=== PATIENT | female | born 2000 | race Caucasian/White ===

== ENCOUNTER 2018-12-01 14:03 | Inpatient (IN) ==
[2018-12-01] MEDS ORDERED: fentaNYL citrate 100 MCG/2 ML VIAL IV STA ×2 (14:49→15:41)
[2018-12-01 15:34] LABS: Basophils # (auto) 0.06 K/uL (0-0.2); Basophils % (auto) 0.5 %; Eosinophils % (auto) 3.4 %; Hematocrit (blood only) 37.3 % (37-47); Hemoglobin 12.3 g/dL (12.0-16.0); Immature Granulocytes # (auto) 0.04 K/uL (0.00-0.02); Immature Granulocytes % (auto) 0.3 %; Lymphocytes # (auto) 2.29 K/uL (1.2-3.4); Lymphocytes % (auto) 19.5 %; Mean Corpuscular Volume 89.2 fL (80-100); Mean Platelet Volume 10.1 fL (7.4-10.4); Monocytes # (auto) 0.71 K/uL (0.11-0.59); Monocytes % (auto) 6.1 %; Neutrophils # (auto) 8.22 K/uL (1.4-6.5); Neutrophils % (auto) 70.2 %; Platelet Count 247 K/uL (130-400); RDW Coefficient of Variation 13.2 % (11.5-14.5); Red Blood Count 4.18 M/uL (4.2-5.4); White Blood Count 11.72 K/uL (4.8-10.8)
[2018-12-01 15:51] LABS: Albumin Level 3.4 gm/dl (3.4-5.0); BUN Creatinine Ratio 11.3 (10-20); Calcium 8.4 mg/dl (8.5-10.1); Creatinine Clr Calc Pharmacy 112.7 ml/min; Est GFR (African American) 117.7; Est GFR (Non-African American) 101.5; Potassium 3.7 mmol/L (3.5-5.1)
[2018-12-01 15:53] LABS: Albumin Globulin Ratio 0.9 (0.9-2); Bilirubin,Total 0.8 mg/dl (0.2-1); C Reactive Protein 3.29 mg/dl (0-0.29); Globulin 3.7 gm/dl (2.5-4.0); Total Protein 7.1 gm/dl (6.4-8.2)
[2018-12-01] MEDS ORDERED: GADOBUTROL 65ML VIAL IV PRN (16:13)
--- NOTE | 2018-12-01 16:57 | Magnetic Resonance Report ---
MRI OF THE LUMBAR SPINE WITH AND WITHOUT CONTRAST CLINICAL HISTORY: Low back pain, fever COMPARISON STUDY: Lumbar spine CT December 01, 2018. TECHNIQUE: Utilizing a 1.5 Kalli magnet and dedicated coil, multiplanar, multiecho imaging of the [facility] spine was performed before and after uneventful IV administration of 7 mL of Gadavist. FINDINGS: For purposes of numbering on this exam, the L5-S1 disc space is assigned to axial image 23 of 25. Exa m is compromised by motion artifact. Vertebral body heights are maintained. The conus terminates at t he T12-L1 level. There is no evidence for discitis. No epidural fluid collection is identified. The c entral canal and neural foramen are patent. There are few minimal disc bulges at the L4-L5 and L5-S1 levels. Markedly abnormal appearance of the paraspinal muscles of the lumbar spine are noted. Increas ed T2 signal is noted within multiple paraspinal muscles as well as slight increased T1 signal within left paraspinal musculature. Postcontrast images demonstrate hypoenhancing foci within the left para spinal musculature. There is no rim-enhancing fluid collection. However, these findings raise the pos sibility of myonecrosis. Prevertebral soft tissues are normal. IMPRESSION: 1. Markedly abnormal appearance of the bilateral paraspinal muscles of the lumbar spine with edema, s uspected minimal hemorrhage and foci of diminished enhancement within the left paraspinal musculature . The findings suggest myositis with possible myonecrosis/rhabdomyolysis. Findings could be correlate d with creatine kinase levels. An infectious myositis could appear similar and could be correlated wi th clinical evidence for an infectious process. No drainable fluid collection at this time. If persis tent symptoms, short-term follow-up MRI is recommended. Findings discussed with Jerry Larios at time o f dictation. 2. No evidence for discitis. No epidural abnormality. Patent central canal and neural foramen. 3. Study mildly compromised by motion artifact. Electronically signed by: Bartolo Gamino M.D. 12/01/2018 4:56 PM
--- NOTE | 2018-12-01 17:13 | Emergency Department Note ---
History of Present Illness General Chief complaint: Back Injury/Pain Stated complaint: HERNIATED DISC Time Seen by Provider: 12/01/18 14:15 History of Present Illness Maximum Pain Intensity: 10 This is a 18-year-old female that presents to the emergency department via private vehicle with complaints of "herniated disc". The patient states that Wednesday she did some heavy lifting in the gym which included squats and lifts. She then notes that there was really no pain she just felt soreness in the back. She then notes that back pain developed and she was seen at the hospital in [place] on Wednesday and then again today. She was told it was a pulled muscle initially and then a CT scan was done today which revealed herniated disks. She states that she was given initially Toradol, Flexeril and Percocet and none of those have been controlling her pain. She does note that she is concerned and believe she would benefit from an MRI. Home Medications Home Medications Medication Instructions Recorded Confirmed Type norethindrone ac-eth estradiol 1 tab PO DAILY 12/01/18 12/01/18 History [ ()] Allergies Allergy/AdvReac Type Severity Reaction Status Date / Time doxycycline Allergy Vomiting Unverified 12/01/18 16:36 amoxicillin AdvReac Hives Unverified 12/01/18 16:36 Past Med/Surg History Medical History No pertinent past medical history Surgical History No pertinent past surgical history Social History Current Living Situation Comment: Roomates Other Information That Helps Us Care for You: No Feels Safe at Home: Yes Safety Concerns: Feels Safe At This Time Smoking Status: Never smoker Hx Alcohol Use: Yes Alcohol Intake Frequency: holidays/special occasions only Hx Substance Use: No Beliefs That Will Affect Care: None Preferred Language: Albanian Communication Ability: Effective Head Banquet Waitress Required: Yes Review of Systems A total of 10 systems reviewed and were otherwise negative Physical Exam Vital Signs Vital Signs - 24 hr 12/01/18 14:10 12/01/18 16:39 12/01/18 17:35 Temperature 36.7 C 37.4 C Temperature Source Oral Oral Sepsis Recent Fever Within 48 Hours No Sepsis New/Unexplained Change in Mental Status No Sepsis Action Taken by Nursing No Action Required Pulse Rate 77 Pulse Rate [Right Finger] 61 68 Pulse Rhythm [Right Finger] Pulse Strength [Right Finger] Respiratory Rate 16 16 28 H Respiratory Effort / Characteristics Non-Labored Respiratory Depth Normal Shallow Respiratory Pattern Tachypnea Blood Pressure 121/71 Blood Pressure [Right Arm] 111/56 L 115/64 Blood Pressure Mean 87 Blood Pressure Mean [Right Arm] 74 81 Blood Pressure Position [Right Arm] Pulse Oximetry 96 98 98 Oxygen Delivery Method Room Air Room Air Room Air Oxygen Flow Rate 12/01/18 18:51 12/01/18 20:18 12/01/18 21:14 Temperature 37.7 C H 37.1 C Temperature Source Oral Oral Sepsis Recent Fever Within 48 Hours Sepsis New/Unexplained Change in Mental Status Sepsis Action Taken by Nursing Pulse Rate 84 Pulse Rate [Right Finger] 78 77 Pulse Rhythm [Right Finger] Regular Pulse Strength [Right Finger] Normal Respiratory Rate 22 20 19 Respiratory Effort / Characteristics Non-Labored Non-Labored Respiratory Depth Normal Normal Respiratory Pattern Regular Blood Pressure 123/69 Blood Pressure [Right Arm] 123/69 139/82 Blood Pressure Mean Blood Pressure Mean [Right Arm] 87 101 Blood Pressure Position [Right Arm] Sitting Pulse Oximetry 100 100 100 Oxygen Delivery Method Room Air Room Air Oxygen Flow Rate 12/01/18 23:25 12/02/18 07:45 Temperature 36.8 C 36.9 C Temperature Source Oral Oral Sepsis Recent Fever Within 48 Hours Sepsis New/Unexplained Change in Mental Status Sepsis Action Taken by Nursing Pulse Rate Pulse Rate [Right Finger] 72 72 Pulse Rhythm [Right Finger] Regular Pulse Strength [Right Finger] Normal Respiratory Rate 21 20 Respiratory Effort / Characteristics Non-Labored Respiratory Depth Normal Respiratory Pattern Regular Blood Pressure Blood Pressure [Right Arm] 138/68 118/75 Blood Pressure Mean Blood Pressure Mean [Right Arm] 91 89 Blood Pressure Position [Right Arm] Pulse Oximetry 99 97 Oxygen Delivery Method Nasal Cannula Room Air Oxygen Flow Rate 3 VITAL SIGNS - Vital signs and nursing notes were reviewed. Stable. Afebrile. GENERAL -18-year-old female appearing her stated age who is in no acute distress but appears in pain. Communicates well with provider and answers questions appropriately. SKIN - Without rashes. No meningeal or petechial rash. HEAD - NC/AT. EYES - PERRL with EOMI bilaterally. Sclera anicteric. EARS - No deformities of external structures noted on gross examination bilaterally. NOSE - Midline and without cyanosis. No epistaxis or purulent drainage noted. MOUTH/OROPHARYNX - Without perioral cyanosis. Buccal mucosa pink and moist and without leukoplakia. Tongue midline with equal elevation of palate bilaterally. No tonsillar hypertrophy, erythema, or exudates noted. Good dentition noted. NECK - Neck with FROM. Supple to palpation. No lymphadenopathy noted. No nuchal rigidity. LUNGS - Chest wall symmetric without accessory muscle use, intercostals retractions, or central cyanosis. Normal vesicular breath sounds CTA B/L. No wheezes, rales, or rhonchi appreciated. CARDIAC - RRR with S1/S2. No murmur, rubs, or gallops appreciated. ABDOMEN - Abdominal contour normal without pulsations or visible masses. BS normoactive all four quadrants. No tenderness, palpable masses, hepatosplenomegaly, or ascites noted. EXTREMITIES - No clubbing or peripheral cyanosis. No pretibial edema present. + 5/5 strength noted in UE/LE bilaterally. MUSCULOSKELETAL: There is diffuse tenderness to palpation overlying the paraspinous musculature of the lumbar spine left greater than right. With extension and flexion at the patient's left hip there is reproducible pain in the lumbar spine. There is no direct tenderness to palpation overlying spinous processes.Pt. is NV intact in the lower extremities without any appreciable deficit. She is able to ambulate. NEUROLOGIC - Cranial nerves II through XII grossly intact. Sensory intact to light touch throughout. Patellar reflexes +2/4. PSYCH - A&Ox3 and cooperates fully with examiner. Pt is very pleasant and interacts well with examiner. Course Administered Medications Diclofenac Sodium (Voltaren 1% Top) 1 appln EXT QID RICARDO Stop: 01/01/19 08:59 Last Admin: 12/02/18 12:50 Dose: 1 appln Admin: 12/02/18 07:57 Dose: 1 appln Hydromorphone HCl (Dilaudid) 0.5 mg IV Q2H PRN PRN Reason: Severe Pain Stop: 12/16/18 11:22 Last Admin: 12/02/18 11:56 Dose: 0.5 mg Sodium Chloride (Nss 1000ml) 1,000 mls @ 175 mls/hr IV .Q5H43M RICARDO Stop: 12/02/18 17:10 Last Infusion: 12/02/18 11:56 Dose: 175 mls/hr Infusion: 12/02/18 11:22 Dose: 0 mls/hr Admin: 12/02/18 11:21 Dose: 175 mls/hr Infusion: 12/02/18 11:21 Dose: 0 mls/hr Admin: 12/02/18 05:44 Dose: 175 mls/hr Clindamycin Phosphate 600 mg/ (Dextrose) 54 mls @ 100 mls/hr IV Q8H RICARDO Stop: 12/12/18 03:59 Last Infusion: 12/02/18 11:55 Dose: 0 mls/hr Admin: 12/02/18 11:22 Dose: 100 mls/hr Infusion: 12/02/18 05:08 Dose: 0 mls/hr Admin: 12/02/18 04:35 Dose: 100 mls/hr Ketorolac Tromethamine (Toradol) 30 mg IV Q6H RICARDO Stop: 12/07/18 09:59 Last Admin: 12/02/18 10:06 Dose: 30 mg Lidocaine (Lidoderm 5%) 1 patch TD HS RICARDO Stop: 12/31/18 23:09 Last Admin: 12/01/18 23:34 Dose: 1 patch Miscellaneous (Remove Lidoderm Patch) 1 ea N/A QAM RICARDO Stop: 01/01/19 08:59 Last Admin: 12/02/18 07:57 Dose: 1 ea Morphine Sulfate (Morphine Sulfate) 4 mg IV Q3H PRN PRN Reason: Pain Stop: 12/15/18 20:43 Last Admin: 12/02/18 08:31 Dose: 4 mg Admin: 12/02/18 04:32 Dose: 4 mg Admin: 12/02/18 01:11 Dose: 4 mg Admin: 12/01/18 22:02 Dose: 4 mg Tramadol HCl (Ultram) 50 mg PO Q4H PRN PRN Reason: Pain Stop: 12/31/18 20:43 Last Admin: 12/02/18 04:44 Dose: 50 mg Admin: 12/02/18 00:32 Dose: 50 mg Discontinued Medications Fentanyl Citrate (Fentanyl Citrate) 25 mcg IV NOW STA Stop: 12/01/18 14:50 Last Admin: 12/01/18 14:54 Dose: 25 mcg Fentanyl Citrate (Fentanyl Citrate) 25 mcg IV NOW STA Stop: 12/01/18 15:42 Last Admin: 12/01/18 15:55 Dose: 25 mcg Gadobutrol (Gadavist 65ml) 7 ml IV ONCE PRN PRN Reason: Interaction Checking Stop: 12/05/18 16:12 Last Admin: 12/01/18 16:14 Dose: 7 ml Hydromorphone HCl (Dilaudid) 0.5 mg IV NOW STA Stop: 12/01/18 17:48 Last Admin: 12/01/18 17:58 Dose: 0.5 mg Sodium Chloride (Nss 1000ml) 1,000 mls @ 999 mls/hr IV .Q1H1M RICARDO Stop: 12/01/18 18:15 Last Infusion: 12/01/18 21:11 Dose: Admin: 12/01/18 18:09 Dose: 999 mls/hr Aztreonam 2,000 mg/ Dextrose 110 mls @ 100 mls/hr IV NOW STA Stop: 12/01/18 18:23 Last Admin: 12/01/18 18:48 Dose: Not Given Sodium Chloride (Nss 1000ml) 1,000 mls @ 999 mls/hr IV .Q1H1M RICARDO Stop: 12/01/18 18:30 Last Infusion: 12/01/18 21:11 Dose: Admin: 12/01/18 18:09 Dose: 999 mls/hr Vancomycin HCl 1,250 mg/ (Sodium Chloride) 525 mls @ 200 mls/hr IV NOW ONE Stop: 12/01/18 19:55 Last Infusion: 12/01/18 22:35 Dose: 0 mls/hr Admin: 12/01/18 19:40 Dose: 200 mls/hr Clindamycin Phosphate (Cleocin) 600 mg in 54 mls @ 100 mls/hr IV ONE ONE Stop: 12/01/18 19:22 Last Infusion: 12/01/18 20:50 Dose: 0 mls/hr Admin: 12/01/18 20:17 Dose: 100 mls/hr Potassium Chloride/Dextrose/Sod Cl (D5nss + 20meq Kcl) 20 meq in 1,000 mls @ 250 mls/hr IV .Q4H RICARDO Stop: 12/02/18 05:44 Last Infusion: 12/02/18 05:12 Dose: 0 mls/hr Admin: 12/02/18 01:12 Dose: 250 mls/hr Infusion: 12/02/18 01:12 Dose: 250 mls/hr Admin: 12/01/18 21:31 Dose: 250 mls/hr Vancomycin HCl 1,000 mg/ (Sodium Chloride) 270 mls @ 125 mls/hr IV Q8H RICARDO Stop: 12/12/18 03:59 Last Infusion: 12/02/18 06:55 Dose: 0 mls/hr Admin: 12/02/18 04:35 Dose: 125 mls/hr Ketorolac Tromethamine (Toradol) 30 mg IV ONE ONE Stop: 12/01/18 21:31 Last Admin: 12/01/18 21:31 Dose: 30 mg Medical Decision Making Laboratory Data Result diagrams: 12/02/18 05:33 12/02/18 05:33 Lab Results 12/01/18 12/01/18 12/01/18 Range/Units 14:45 14:45 14:45 WBC 11.72 H (4.8-10.8) K/uL RBC 4.18 L (4.2-5.4) M/uL Hgb 12.3 (12.0-16.0) g/dL Hct 37.3 (37-47) % MCV 89.2 (80-100) fL MCH 29.4 (25-34) pg MCHC 33.0 (32-36) g/dL RDW Std Deviation 43.0 (36.4-46.3) fL RDW Coeff of Kirsten 13.2 (11.5-14.5) % Plt Count 247 (130-400) K/uL MPV 10.1 (7.4-10.4) fL Immature Gran % (Auto) 0.3 % Neut % (Auto) 70.2 % Lymph % (Auto) 19.5 % Weston % (Auto) 6.1 % Eos % (Auto) 3.4 % Baso % (Auto) 0.5 % Immature Gran # (Auto) 0.04 H (0.00-0.02) K/uL Neut # (Auto) 8.22 H (1.4-6.5) K/uL Lymph # (Auto) 2.29 (1.2-3.4) K/uL Weston # (Auto) 0.71 H (0.11-0.59) K/uL Eos # (Auto) 0.40 (0-0.5) K/uL Baso # (Auto) 0.06 (0-0.2) K/uL ESR 16 (0-21) mm/hr Sodium 136 (136-145) mmol/L Potassium 3.7 (3.5-5.1) mmol/L Chloride 108 H (98-107) mmol/L Carbon Dioxide 24 (21-32) mmol/L Anion Gap 4.0 (3-11) BUN 9 (7-18) mg/dl Creatinine 0.83 (0.6-1.2) mg/dl Est Cr Clr Drug Dosing 112.7 ml/min Est GFR ( Amer) 117.7 Est GFR (Non-Af Amer) 101.5 BUN/Creatinine Ratio 11.3 (10-20) Glucose 76 (70-99) mg/dl Lactate (0.4-2.0) mmol/L Calcium 8.4 L (8.5-10.1) mg/dl Phosphorus (2.5-4.9) mg/dl Magnesium (1.8-2.4) mg/dl Total Bilirubin 0.8 (0.2-1) mg/dl AST 308 H (15-37) U/L ALT 107 H (12-78) U/L Alkaline Phosphatase 46 (45-117) U/L Total Creatine Kinase 38877 H (26-192) U/L C-Reactive Protein 3.29 H (0-0.29) mg/dl Total Protein 7.1 (6.4-8.2) gm/dl Albumin 3.4 (3.4-5.0) gm/dl Globulin 3.7 (2.5-4.0) gm/dl Albumin/Globulin Ratio 0.9 (0.9-2) HCG, Quant mIU/ml 12/01/18 12/01/18 12/01/18 Range/Units 14:45 14:45 18:07 WBC (4.8-10.8) K/uL RBC (4.2-5.4) M/uL Hgb (12.0-16.0) g/dL Hct (37-47) % MCV (80-100) fL MCH (25-34) pg MCHC (32-36) g/dL RDW Std Deviation (36.4-46.3) fL RDW Coeff of Kirsten (11.5-14.5) % Plt Count (130-400) K/uL MPV (7.4-10.4) fL Immature Gran % (Auto) % Neut % (Auto) % Lymph % (Auto) % Weston % (Auto) % Eos % (Auto) % Baso % (Auto) % Immature Gran # (Auto) (0.00-0.02) K/uL Neut # (Auto) (1.4-6.5) K/uL Lymph # (Auto) (1.2-3.4) K/uL Weston # (Auto) (0.11-0.59) K/uL Eos # (Auto) (0-0.5) K/uL Baso # (Auto) (0-0.2) K/uL ESR (0-21) mm/hr Sodium (136-145) mmol/L Potassium (3.5-5.1) mmol/L Chloride (98-107) mmol/L Carbon Dioxide (21-32) mmol/L Anion Gap (3-11) BUN (7-18) mg/dl Creatinine (0.6-1.2) mg/dl Est Cr Clr Drug Dosing ml/min Est GFR ( Amer) Est GFR (Non-Af Amer) BUN/Creatinine Ratio (10-20) Glucose (70-99) mg/dl Lactate 1.5 (0.4-2.0) mmol/L Calcium (8.5-10.1) mg/dl Phosphorus (2.5-4.9) mg/dl Magnesium (1.8-2.4) mg/dl Total Bilirubin (0.2-1) mg/dl AST (15-37) U/L ALT (12-78) U/L Alkaline Phosphatase (45-117) U/L Total Creatine Kinase Cancelled (26-192) U/L C-Reactive Protein (0-0.29) mg/dl Total Protein (6.4-8.2) gm/dl Albumin (3.4-5.0) gm/dl Globulin (2.5-4.0) gm/dl Albumin/Globulin Ratio (0.9-2) HCG, Quant < 1 mIU/ml 12/01/18 12/02/18 12/02/18 Range/Units 23:04 05:33 05:33 WBC 8.30 (4.8-10.8) K/uL RBC 3.89 L (4.2-5.4) M/uL Hgb 11.5 L (12.0-16.0) g/dL Hct 34.9 L (37-47) % MCV 89.7 (80-100) fL MCH 29.6 (25-34) pg MCHC 33.0 (32-36) g/dL RDW Std Deviation 43.0 (36.4-46.3) fL RDW Coeff of Kirsten 13.1 (11.5-14.5) % Plt Count 245 (130-400) K/uL MPV 9.8 (7.4-10.4) fL Immature Gran % (Auto) 0.4 % Neut % (Auto) 57.7 % Lymph % (Auto) 28.3 % Weston % (Auto) 7.3 % Eos % (Auto) 5.7 % Baso % (Auto) 0.6 % Immature Gran # (Auto) 0.03 H (0.00-0.02) K/uL Neut # (Auto) 4.79 (1.4-6.5) K/uL Lymph # (Auto) 2.35 (1.2-3.4) K/uL Weston # (Auto) 0.61 H (0.11-0.59) K/uL Eos # (Auto) 0.47 (0-0.5) K/uL Baso # (Auto) 0.05 (0-0.2) K/uL ESR (0-21) mm/hr Sodium 138 (136-145) mmol/L Potassium 3.9 (3.5-5.1) mmol/L Chloride 108 H (98-107) mmol/L Carbon Dioxide 23 (21-32) mmol/L Anion Gap 7.0 (3-11) BUN 6 L (7-18) mg/dl Creatinine 0.58 L (0.6-1.2) mg/dl Est Cr Clr Drug Dosing 140.2 ml/min Est GFR ( Amer) > 150.0 Est GFR (Non-Af Amer) 132.7 BUN/Creatinine Ratio 10.6 (10-20) Glucose 89 (70-99) mg/dl Lactate (0.4-2.0) mmol/L Calcium 7.6 L (8.5-10.1) mg/dl Phosphorus 3.6 (2.5-4.9) mg/dl Magnesium 1.9 (1.8-2.4) mg/dl Total Bilirubin (0.2-1) mg/dl AST (15-37) U/L ALT (12-78) U/L Alkaline Phosphatase (45-117) U/L Total Creatine Kinase 37223 H 56307 H (26-192) U/L C-Reactive Protein (0-0.29) mg/dl Total Protein (6.4-8.2) gm/dl Albumin (3.4-5.0) gm/dl Globulin (2.5-4.0) gm/dl Albumin/Globulin Ratio (0.9-2) HCG, Quant mIU/ml 12/02/18 12/02/18 Range/Units 05:33 05:33 WBC (4.8-10.8) K/uL RBC (4.2-5.4) M/uL Hgb (12.0-16.0) g/dL Hct (37-47) % MCV (80-100) fL MCH (25-34) pg MCHC (32-36) g/dL RDW Std Deviation (36.4-46.3) fL RDW Coeff of Kirsten (11.5-14.5) % Plt Count (130-400) K/uL MPV (7.4-10.4) fL Immature Gran % (Auto) % Neut % (Auto) % Lymph % (Auto) % Weston % (Auto) % Eos % (Auto) % Baso % (Auto) % Immature Gran # (Auto) (0.00-0.02) K/uL Neut # (Auto) (1.4-6.5) K/uL Lymph # (Auto) (1.2-3.4) K/uL Weston # (Auto) (0.11-0.59) K/uL Eos # (Auto) (0-0.5) K/uL Baso # (Auto) (0-0.2) K/uL ESR 11 (0-21) mm/hr Sodium (136-145) mmol/L Potassium (3.5-5.1) mmol/L Chloride (98-107) mmol/L Carbon Dioxide (21-32) mmol/L Anion Gap (3-11) BUN (7-18) mg/dl Creatinine (0.6-1.2) mg/dl Est Cr Clr Drug Dosing ml/min Est GFR ( Amer) Est GFR (Non-Af Amer) BUN/Creatinine Ratio (10-20) Glucose (70-99) mg/dl Lactate (0.4-2.0) mmol/L Calcium (8.5-10.1) mg/dl Phosphorus (2.5-4.9) mg/dl Magnesium (1.8-2.4) mg/dl Total Bilirubin (0.2-1) mg/dl AST (15-37) U/L ALT (12-78) U/L Alkaline Phosphatase (45-117) U/L Total Creatine Kinase (26-192) U/L C-Reactive Protein 8.89 H (0-0.29) mg/dl Total Protein (6.4-8.2) gm/dl Albumin (3.4-5.0) gm/dl Globulin (2.5-4.0) gm/dl Albumin/Globulin Ratio (0.9-2) HCG, Quant mIU/ml Imaging Data Radiologist's Impression: MRI OF THE LUMBAR SPINE WITH AND WITHOUT CONTRAST CLINICAL HISTORY: Low back pain, fever COMPARISON STUDY: Lumbar spine CT December 01, 2018. TECHNIQUE: Utilizing a 1.5 Kalli magnet and dedicated coil, multiplanar, multiecho imaging of the lumbar spine was performed before and after uneventful IV administration of 7 mL of Gadavist. FINDINGS: For purposes of numbering on this exam, the L5-S1 disc space is assigned to axial image 23 of 25. Exam is compromised by motion artifact. Vertebral body heights are maintained. The conus terminates at the T12-L1 level. There is no evidence for discitis. No epidural fluid collection is identified. The central canal and neural foramen are patent. There are few minimal disc bulges at the L4 -L5 and L5-S1 levels. Markedly abnormal appearance of the paraspinal muscles of the lumbar spine are noted. Increased T2 signal is noted within multiple paraspinal muscles as well as slight increased T1 signal within left paraspinal musculature. Postcontrast images demonstrate hypoenhancing foci within the left paraspinal musculature. There is no rim-enhancing fluid collection. However, these findings raise the possibility of myonecrosis. Prevertebral soft tissues are normal. IMPRESSION: 1. Markedly abnormal appearance of the bilateral paraspinal muscles of the lumbar spine with edema, suspected minimal hemorrhage and foci of diminished enhancement within the left paraspinal musculature. The findings suggest myositis with possible myonecrosis/rhabdomyolysis. Findings could be correlated with creatine kinase levels. An infectious myositis could appear similar and could be correlated with clinical evidence for an infectious process. No drainable fluid collection at this time. If persistent symptoms, short-term follow-up MRI is recommended. Findings discussed with Jerry Larios at time of dictation. 2. No evidence for discitis. No epidural abnormality. Patent central canal and neural foramen. 3. Study mildly compromised by motion artifact. Electronically signed by: Bartolo Gamino M.D. 12/01/2018 4:56 PM [facility] Narrative Patient was seen and evaluated as above in room D6. Review was performed of nursing notes and vital signs. After obtaining a thorough history and physical examination the above work up was performed. She presents to us today with complaints of "herniated disc". The patient was seen at [place] emergency department x2 in the recent past. A CT scan was performed there. I reviewed this. There was documentation to support herniated disks. The patient stated that she would like an MRI. I discussed this with the patient and initially discussed indications for the MRI. It was then found subjectively that she noted she had a fever yesterday and I discussed how a an MRI should be performed with contrast. An IV was placed. She was given pain medication. She was given fentanyl noting that this is what she had in the emergency department earlier today and already had Toradol and had minimal relief. She already was using Percocet and Flexeril with minimal relief. I would argue that because of the patient's escalated level of pain on exam and minimal relief with the pain medication, subjective fevers that an MRI with contrast of the lumbar spine is warranted. This was obtained. Results as above. I was called emergently by the radiologist with the findings. I then immediately discussed these with the patient and the attending physician. In the event that this could be infectious she was ordered antibiotics immediately. There is also evidence of rhabdomyolysis which could be causing her symptoms however with the MRI finding ,fevers do believe that emperic abx for myositis are reasonable. Blood cultures are pending. I discussed these findings with the on -call specialist physicians, Dr. Whitehead. We discussed how at this time he does not appear to be a surgical spine issue. He recommended discussing this with medicine. I then discussed this with the medicine team. Specifically, I spoke to Dr. Harrison. Pt. will be admitted. She was ordered 2 L of fluid while in department. I also per pt request spoke to her mother regarding her findings throughout her stay. Case was discussed with the attending physician. In the evaluation and treatment of this patient the following differential diagnosis entertained: Fracture, dislocation, subluxation, cauda equina syndrome , rhabdomyolysis, AAA, diverticulitis, appendicitis, torsion, osteomyelitis, piriformis syndrome, strain, sprain, among others. Impression & Plan Myositis, Low back pain, Rhabdomyolysis Discharge Plan Visit Data *Final* Discharge Date/Time: 12/01/18 20:18 Chief Complaint: Back Injury/Pain Stated Complaint: HERNIATED DISC ED Provider: Malik Laboy ED Midlevel Provider: Jerry Larios Discharge Problem: Myositis, Low back pain, Rhabdomyolysis Patient Disposition: Admitted As Inpatient Condition: Good Discharge Instructions Interventions: ED Discharge Assessment Last Done: 12/01/18 20:18
[2018-12-01] MEDS ORDERED: SODIUM CHLORIDE 0.9% 1000ML 1,000 ML IV SCH ×2 (17:15→17:30)
[2018-12-01] MEDS ORDERED: VANCOMYCIN HCL 1,250 MG in SODIUM CHLORIDE 0.9% 500 ML IV ONE (17:18)
[2018-12-01] MEDS ORDERED: AZTREONAM 2,000 MG in DEXTROSE 5% 100 ML IV STA (17:18)
[2018-12-01] MEDS ORDERED: VANCOMYCIN CONSULT ACTIVE PRN ×2 (17:18→20:44)
[2018-12-01] MEDS ORDERED: HYDROmorphone INJ 0.5 MG/0.5 ML SYR IV STA (17:47)
[2018-12-01] MEDS ORDERED: CLINDAMYCIN 600 MG/54 ML BAG IV ONE (18:50)
--- NOTE | 2018-12-01 19:25 | History & Physical Report ---
Date of Service December 01, 2018 Assessment & Plan (1) Myositis: 18 y/o F without a significant medical history. The pt was weight lifting 3 days prior including squats an lifts. She initially had some soreness of her lower back which has progressed to severe pain in the lumbar area. She also reports a fever of 102. She denies SOB, CP, N/V or dysuria. She denies any lower extremity muscle weakness. She may have some positional numbness of her LLE which she states comes and goes. She was initially evaluated and discharged from the ER at [facility]. She returns today due to worsening pain and has a persistent fever. An MRI of the lumbar spine demonstrated an abnormal appearance of the bilateral paraspinal muscles with edema, suspected minimal hemorrhage and foci of diminished enhancement within the left paraspinal musculature. The findings suggest myositis with possible myonecrosis/rhabdomyolysis. Initial labs are consistent with rhabdomyolysis with a CK of 19,000. She had a low-grade fever on arrival to the ER. 1) Suspected myositis - this is unusual as she does not have any risk factors or a history of immune suppression and the findings follow what was likely inflammation due to weight lifting. She has a fever and minimal leukocytosis so that we will start antibiotics pending culture results. We will consult the ortho/spine service. Analgesics are provided. 2) Rhabdomyolysis - mild at present - Aggressive IVF, trend CK, electrolytes. Full code - SCDs due to small hemorrhagic focus on MRI Total time for this admit including review of labs, meds, imaging, records - discussion with pt and ER attending - 35 min Present on Admission?: Yes History of Present Illness Chief Complaint: Back pain Primary Care Provider: [facility] 18 y/o F without a significant medical history. The pt was weight lifting 3 days prior including squats an lifts. She initially had some soreness of her lower back which has progressed to severe pain in the lumbar area. She also reports a fever of 102. She denies SOB, CP, N/V or dysuria. She denies any lower extremity muscle weakness. She may have some positional numbness of her LLE which she states comes and goes. She was initially evaluated and discharged from the ER at [facility]. She returns today due to worsening pain and has a persistent fever. An MRI of the lumbar spine demonstrated an abnormal appearance of the bilateral paraspinal muscles with edema, suspected minimal hemorrhage and foci of diminished enhancement within the left paraspinal musculature. The findings suggest myositis with possible myonecrosis/ rhabdomyolysis. Initial labs are consistent with rhabdomyolysis with a CK of 19 ,000. She had a low-grade fever on arrival to the ER. PMH: Denies any medical or surgical history Social: Does not smoke, under aged social drinker, studying criminal justice at [employer] Family: Both parents alive and well Allergies Allergy/AdvReac Type Severity Reaction Status Date / Time doxycycline Allergy Vomiting Unverified 12/01/18 16:36 amoxicillin AdvReac Hives Unverified 12/01/18 16:36 Home Medications Home Medications Medication Instructions Recorded Confirmed Type norethindrone ac-eth estradiol 1 tab PO DAILY 12/01/18 12/01/18 History [ ()] Past Med/Surg History Medical History No pertinent past medical history Surgical History No pertinent past surgical history Social History Feels Safe at Home: Yes Smoking Status: Never smoker Review of Systems Gen: Reports fever of to 102 at home ENT: Denies congestion, throat pain, hearing loss Eyes: Denies acute visual changes CV: Denies CP, palpitations Pulmonary: Denies SOB, cough, wheezing GI: Denies N/V, diarrhea, constipation Neuro: Denies acute or unilateral weakness, acute gait impairment, headache or acute visual changes - has transient numbness in her LLE Musculoskeletal: Severe lower back pain Endocrine: Denies polydipsia, polyuria Skin: Denies acute rashes or ulcers Physical Exam 2 Vital Signs (Past 24 Hours): Last Vital Signs Temp 37.7 C H 12/01/18 18:51 Pulse 78 12/01/18 18:51 Resp 22 12/01/18 18:51 BP 123/69 12/01/18 18:51 Pulse Ox 100 12/01/18 18:51 Results & Data Diagnostic Findings Lumbar MRI: 1. Markedly abnormal appearance of the bilateral paraspinal muscles of the lumbar spine with edema, suspected minimal hemorrhage and foci of diminished enhancement within the left paraspinal musculature. The findings suggest myositis with possible myonecrosis/rhabdomyolysis. Findings could be correlated with creatine kinase levels. An infectious myositis could appear similar and could be correlated with clinical evidence for an infectious process. No drainable fluid collection at this time. If persistent symptoms, short-term follow-up MRI is recommended. Findings discussed with Jerry Larios at time of dictation. 2. No evidence for discitis. No epidural abnormality. Patent central canal and neural foramen. 3. Study mildly compromised by motion artifact.
--- NOTE | 2018-12-01 20:34 | Emergency Department Note ---
Entered by Erica Faulkner acting as a scribe for Malik Laboy MD ED Visit Note The patient was seen and examined by myself in conjunction with THELMA Schroeder. I agree with the history, physical and findings as documented. Please see the note for disposition and details. The scribe's documentation has been prepared under my direction and personally reviewed by me in its entirety. I confirm that the note above accurately reflects all work, treatment, procedures, and medical decision making performed by me.
[2018-12-01] MEDS ORDERED: ACETAMINOPHEN 325 MG TAB PO PRN (20:44)
[2018-12-01] MEDS ORDERED: ALUMINUM/MAGNESIUM SUSP 30 ML UDC PO PRN (20:44)
[2018-12-01] MEDS ORDERED: ONDANSETRON INJ 2 MG/ML 2 ML VIAL IV PRN (20:44)
[2018-12-01] MEDS ORDERED: KETOROLAC 30 MG/ML VIAL IV ONE (21:30)
[2018-12-01] MEDS: D5NSS + 20MEQ KCL 20 MEQ/1,000 ML BAG IV SCH (21:31)
[2018-12-01] MEDS: MoRPHine SULFATE 4 MG/ML 1 ML CARP\\VIAL IV PRN (22:02)
[2018-12-01] MEDS: LIDOCAINE 5% 1 PATCH TD SCH (23:34)
[2018-12-02] MEDS: TRAMADOL HCL 50 MG TABLET PO PRN ×2 (00:32→04:44)
[2018-12-02] MEDS: MoRPHine SULFATE 4 MG/ML 1 ML CARP\\VIAL IV PRN ×3 (01:11→08:31)
[2018-12-02] MEDS: D5NSS + 20MEQ KCL 20 MEQ/1,000 ML BAG IV SCH (01:12)
[2018-12-02] MEDS ORDERED: VANCOMYCIN HCL 1,000 MG in SODIUM CHLORIDE 0.9% 250 ML IV SCH (04:00)
[2018-12-02] MEDS: CLINDAMYCIN 600 MG in DEXTROSE 5% 50 ML IV SCH ×2 (04:35→11:22)
[2018-12-02] MEDS: SODIUM CHLORIDE 0.9% 1000ML 1,000 ML IV SCH ×3 (05:44→18:22)
[2018-12-02 06:08] LABS: Basophils # (auto) 0.05 K/uL (0-0.2); Basophils % (auto) 0.6 %; Eosinophils # (auto) 0.47 K/uL (0-0.5); Eosinophils % (auto) 5.7 %; Hematocrit (blood only) 34.9 % (37-47); Hemoglobin 11.5 g/dL (12.0-16.0); Immature Granulocytes # (auto) 0.03 K/uL (0.00-0.02); Immature Granulocytes % (auto) 0.4 %; Lymphocytes # (auto) 2.35 K/uL (1.2-3.4); Lymphocytes % (auto) 28.3 %; Mean Corpuscular Volume 89.7 fL (80-100); Mean Platelet Volume 9.8 fL (7.4-10.4); Monocytes # (auto) 0.61 K/uL (0.11-0.59); Monocytes % (auto) 7.3 %; Neutrophils # (auto) 4.79 K/uL (1.4-6.5); Neutrophils % (auto) 57.7 %; Platelet Count 245 K/uL (130-400); RDW Coefficient of Variation 13.1 % (11.5-14.5); Red Blood Count 3.89 M/uL (4.2-5.4)
--- NOTE | 2018-12-02 06:52 | Pharmacy Report ---
Pharmacy Abx Initial Consult - Date of Service December 02, 2018 - Pharmacy Dosing Scope Date of Consult: 12/02/18 Consultation requested by: Dr. Harrison Pharmacy is consulted to continue IV Vancomycin dosing therapy, order appropriate labs and adjust drug dose/frequency. - Subjective The patient is a 18 year old F admitted on 12/01/18 19:24. She presents after weight lifting incident where she began to feel pain in her back and hips. She was seen in [place] then presented to our ED this evening. MRI shows possible Myositis or possible Myonecrosis/Rhabdomyolis in her back area. Dr. Harrison admits her on Clindamycin and Vancomycin both continued from ED. - Objective Height: 5 ft 2 in Weight: 68.3 kg Vital Signs (Past 12hrs): Vital Signs Temp Pulse Pulse Resp BP BP Pulse Ox 12/01/18 23:25 36.8 C 72 21 138/68 99 12/01/18 21:14 37.1 C 77 19 139/82 100 12/01/18 20:18 84 20 123/69 100 12/01/18 18:51 37.7 C H 78 22 123/69 100 Lab Results (24hrs): Laboratory Tests (24 Hours) 12/02/18 12/01/18 12/01/18 05:33 23:04 14:45 WBC 8.30 Neut # (Auto) 4.79 ESR Creatinine Est Cr Clr Drug Dosing Total Creatine Kinase 91154 H Cancelled C-Reactive Protein 12/01/18 12/01/18 12/01/18 14:45 14:45 14:45 WBC 11.72 H Neut # (Auto) 8.22 H ESR 16 Creatinine 0.83 Est Cr Clr Drug Dosing 112.7 Total Creatine Kinase 80136 H C-Reactive Protein 3.29 H Micro Results: 12/01/18 18:07 Blood Culture - Pending Blood 12/01/18 18:12 Blood Culture - Pending Blood - Risk Factors for Resistance * - Assessment & Plan Assessment 18 year old F with back injury possible Myositis Plan Vancomycin IV * Estimated PK Parameters: Vd 0.7 L/kg, Alfredo 0.086 hr-1, t1/2 8 hr * Loading dose: 1250mg (~18mg/kg) * Maintenance dose: 1000mg IV (~15 mg/kg) every 8 hours * Goal trough level: 15 to 20 mcg/mL * Trough level ordered prior to 0400 dose on 12/03/18 Pharmacy will continue to follow and will adjust dose/frequency as necessary. Thank you.
[2018-12-02 06:54] LABS: BUN Creatinine Ratio 10.6 (10-20); Blood Urea Nitrogen 6 mg/dl (7-18); Calcium 7.6 mg/dl (8.5-10.1); Carbon Dioxide 23 mmol/L (21-32); Chloride 108 mmol/L (98-107); Creatinine Clr Calc Pharmacy 140.2 ml/min; Est GFR (African American) > 150.0; Est GFR (Non-African American) 132.7; Glucose 89 mg/dl (70-99); Magnesium 1.9 mg/dl (1.8-2.4); Potassium 3.9 mmol/L (3.5-5.1); Sodium 138 mmol/L (136-145)
[2018-12-02 07:39] LABS: Phosphorus 3.6 mg/dl (2.5-4.9)
[2018-12-02] MEDS: DICLOFENAC SOD 1% GEL 100 GM TUBE EXT SCH ×4 (07:57→21:10)
[2018-12-02 08:06] LABS: Creatine Kinase 16223 U/L (26-192)
--- NOTE | 2018-12-02 09:26 | Consultation Report ---
DATE OF ADMISSION: 12/01/2018 CHIEF COMPLAINT: Back, buttock and lower extremity difficulty. The pain really is in her left buttock region. It is not centrally located in the spine. It is off the midline on the left hand side in the buttock region. As she was lifting weights, the history is well documented, had some soreness of lower back, went to lumbar spine. Did have a temperature elevation. She had continued pain and was discharged from Emergency Room in [place] and returned to [facility] with persistent pain and fever, evaluation and treatment. Her suspected diagnosis is that of myositis, although it is somewhat unusual. I get the fact that she was lifting weights, squats and deadlifts, but still people do this all the time, they do not have these complications. She also has labs consistent with rhabdomyolysis with her CK of 19,000. PAST MEDICAL HISTORY: Negative. PAST SURGICAL HISTORY: Negative. SOCIAL HISTORY: Nonsmoker and nondrinker, studying Criminal Justice in [employer], both parents lived well, are from the [facility]. REVIEW OF SYSTEMS: Denies any current, when I am seeing her this morning, any fever, sweats, chills, any bowel or bladder concerns. Denies shortness of breath, coughing. Denies diarrhea, constipation. Denies any deficits to the extremities. OBJECTIVE: VITAL SIGNS: 37.7 temperature, pulse regular at 80 beats per minute. Blood pressure is normal. LUNGS: Clear. EXTREMITIES: Examination demonstrates pain as described, but no discoloration in her skin. No focal deficits. ABDOMEN: Soft, nontender. IMAGES: MRI scan was reviewed. MRI report is reviewed in detail. The disc heights looked great and perfect. There is no abnormality, no foraminal or central canal stenosis. She had an abnormal appearance of the lumbar spine, some hemorrhage, some left paraspinal muscle enhancement. Findings according to the MRI interpretation were suggestive of myositis and myonecrosis. ASSESSMENT AND PLAN: Delightful young lady 18, who is compromised and I am not sure we have exact handle on her diagnosis and pathology. The myositis and all sounds appropriate. I think there is still an outside chance of an infectious etiology. I can obviously say I have not seen this clinical scenario, it is little bit odd. I think we should really be aware. I would recommend IV fluids, medication, tremendous hydration, short course of antibiotics would also be appropriate I believe, although I am not an expert at that. I will follow her closely. I will check on her later on this evening and tomorrow morning, which would be 12/03/2018.
[2018-12-02] MEDS: KETOROLAC 30 MG/ML VIAL IV SCH ×3 (10:06→22:03)
[2018-12-02] MEDS: HYDROmorphone INJ 0.5 MG/0.5 ML SYR IV PRN ×5 (11:56→23:19)
--- NOTE | 2018-12-02 15:57 | Family Medicine Progress Note ---
Date of Service December 02, 2018 Assessment & Plan (1) Rhabdomyolysis: Hillary Guzman is a 18 y.o female with no significant medical history admitted for management and treatment of acute lumbar paraspinal pain likely secondary to rhabdomyolysis. 1. Rhabdomyolysis -Causing acute lumbar paraspinal pain -Secondary to strenuous weight lifting on 11/29/18 where she used 145 pounds to squat and deadlift after not weightlifiting for several years -CT of lumbar spine at [facility] on 12/01: mild annular bulge suggested from L2- L4; mild diffuse bulge L4-L5; mild facet arthropathy L4-L5; mild posterior disc bulge L5-S1; Facet Arthropathy L5-S1 -MRI lumbar spine: bilateral paraspinal muscles with edema, concern for myositis vs myonecrosis vs rhabdomyolysis, no evidence of discitis -Discussed case with Dr. Kemp (ortho) and Dr. Jj (rheumatology) and both concurred muscle tear as the etiology of elevated CK markers -CK 19,903 on admission and most recent of 18,889; will recheck in AM -CRP elevated at 8.89 and ESR of 16 -WBC 8.30 in am -Pain management: morphine, toradol, tylenol, tramadol, Volteran gel, Lidocaine patch has not been helpful -Toradol 30mg q6hr added along with dilaudid 0.2 q2hr PrN for severe pain, K- pad added -Continue aggressive IVF and pain management -She is likely to improve during this admission, consider PT/OT eval when pt is more mobile 2. Lumbar paraspinal pain -Secondary to rhabdomyolysis vs myositis with likely muscle tear -history, physical exam findings, and serum labs consistent with rhabdomyolysis -she has been afebrile with normal wbc -Given Vanc x1 and Clinda in ED; will d/cClinda as infectious process unlikely -Will cancel ortho consult as there is no bony/disc involvement FEN/GI Fluids: continue IVF NS at 175 cc/hr Electrolytes: monitor and replace as needed Nutrition: Regular diet Activity: oob with assist DVT PPX: none due to low risk GI PPX: None Code: Full Code Dispo: continue inpatient admission for treatment of rhabdomyolysis. Will discharge to home when at baseline. (2) Low back pain: (3) Myositis: Supervising Physician Co-Signing Physician Notes Resident Physician Supervision Note: I independently interviewed and examined the patient and verified the olivarez history and physical, reviewed labs and image studies, discussed the case with the resident Dr. Aguila and agree with the findings and care plan. Subjective Overnight Hillary states that she was unable to sleep due to pain in her lower back. This morning she is lying in bed on her right side and says that the pain in her back is too much for her to lay on her back. She is also complaining of lower abdominal cramping pain that feels different than her menses but she skipped several doses of control and thinks her cycle might be starting. Appetite is decreased but she is drinking plenty of fluids. Denies n/v/diarrhea. Has not had a bowel movement in 2 days. Constitutional: no fever, no chills and no sweats Eyes: no discharge Ear, Nose, Mouth, Throat: no nasal congestion Respiratory: no cough and no wheezing Cardiovascular: no chest pain Gastrointestinal: + cramping and + constipation; no heartburn and no change in bowel habits Physical Exam 2 Vital Signs (Past 24 Hours): Last Vital Signs Temp 36.9 C 12/02/18 15:15 Pulse 80 12/02/18 15:15 Resp 20 12/02/18 15:15 BP 111/65 12/02/18 15:15 Pulse Ox 94 12/02/18 15:15 Constitutional: well nourished, + ill appearing, + well hydrated, healthy appearing and cooperative Eyes: EOM intact bilaterally ENMT: external ear and nose normal, oropharynx normal Neck: neck supple, no LAD, ROM intact Respiratory: normal respiratory effort, lungs clear to auscultation no respiratory distress Cardiovascular: RRR, no murmur, no edema Heart Sounds: normal S1 and normal S2 Gastrointestinal (Abdomen): Inspection/Auscultation: abdomen normal to inspection (tattoo on abdomen with umbilical jewlery) Musculoskeletal: moves all extremities with ease lumbar paraspainals warm to touch no vertebral spinal tenderness Skin: no rashes, warm and dry normal turgor Neurologic: CN's II-XI intact bilaterally and awake Psychiatric: Orientation: alert and oriented x 3 Results & Data Laboratory Results CK 18,889 WBC 8.30 CRP 8.89 ESR 16 Diagnostic Findings MRI Lumbar Spine 1. Markedly abnormal appearance of the bilateral paraspinal muscles of the lumbar spine with edema, suspected minimal hemorrhage and foci of diminished enhancement within the left paraspinal musculature. The findings suggest myositis with possible myonecrosis/rhabdomyolysis. Findings could be correlated with creatine kinase levels. An infectious myositis could appear similar and could be correlated with clinical evidence for an infectious process. No drainable fluid collection at this time. If persistent symptoms, short-term follow-up MRI is recommended. Findings discussed with Jerry Larios at time of dictation. 2. No evidence for discitis. No epidural abnormality. Patent central canal and neural foramen. 3. Study mildly compromised by motion artifact. _ (1) Low back pain Back pain laterality: Chronicity: Sciatica laterality: Sciatica presence : (2) Myositis Laterality: Myositis location: Myositis type: (3) Rhabdomyolysis Encounter type: Rhabdomyolysis type:
[2018-12-02] MEDS ORDERED: Nursing to Pharmacy Communication ONE (17:33)
[2018-12-02] MEDS ORDERED: CALCIUM GLUCONATE 10% 1,000 MG in SODIUM CHLORIDE 0.9% 50 ML IV ONE (18:00)
[2018-12-02] MEDS: POLYETHYLENE (MIRALAX) 17 GM PACK PO PRN (21:08)
[2018-12-02] MEDS: LIDOCAINE 5% 1 PATCH TD SCH (21:10)
[2018-12-02] MEDS: DOCUSATE SODIUM 100 MG CAP PO SCH (21:20)
[2018-12-03] MEDS: SODIUM CHLORIDE 0.9% 1000ML 1,000 ML IV SCH ×5 (00:03→21:34)
[2018-12-03] MEDS: HYDROmorphone INJ 0.5 MG/0.5 ML SYR IV PRN ×5 (01:36→19:31)
[2018-12-03] MEDS: TRAMADOL HCL 50 MG TABLET PO PRN ×3 (01:36→17:21)
[2018-12-03] MEDS ORDERED: VANCOMYCIN TROUGH ONE (03:30)
[2018-12-03] MEDS: KETOROLAC 30 MG/ML VIAL IV SCH ×4 (04:03→21:35)
[2018-12-03 06:26] LABS: Basophils # (auto) 0.03 K/uL (0-0.2); Basophils % (auto) 0.4 %; Eosinophils # (auto) 0.49 K/uL (0-0.5); Eosinophils % (auto) 5.9 %; Hematocrit (blood only) 33.8 % (37-47); Hemoglobin 11.1 g/dL (12.0-16.0); Immature Granulocytes # (auto) 0.02 K/uL (0.00-0.02); Immature Granulocytes % (auto) 0.2 %; Lymphocytes # (auto) 1.91 K/uL (1.2-3.4); Lymphocytes % (auto) 22.9 %; Mean Corpuscular Hgb Conc 32.8 g/dL (32-36); Mean Corpuscular Volume 89.4 fL (80-100); Mean Platelet Volume 9.6 fL (7.4-10.4); Monocytes # (auto) 0.53 K/uL (0.11-0.59); Monocytes % (auto) 6.4 %; Neutrophils # (auto) 5.36 K/uL (1.4-6.5); Neutrophils % (auto) 64.2 %; Platelet Count 250 K/uL (130-400); RDW Coefficient of Variation 12.6 % (11.5-14.5); RDW Standard Deviation 40.6 fL (36.4-46.3); Red Blood Count 3.78 M/uL (4.2-5.4); White Blood Count 8.34 K/uL (4.8-10.8)
[2018-12-03 06:58] LABS: Alanine Aminotransferase 108 U/L (12-78); Albumin Level 2.8 gm/dl (3.4-5.0); Aspartate Aminotransferase 207 U/L (15-37); BUN Creatinine Ratio 10.1 (10-20); Blood Urea Nitrogen 5 mg/dl (7-18); Carbon Dioxide 23 mmol/L (21-32); Chloride 107 mmol/L (98-107); Creatinine Clr Calc Pharmacy 153.4 ml/min; Est GFR (African American) > 150.0; Est GFR (Non-African American) 136.7; Glucose 77 mg/dl (70-99); Potassium 3.8 mmol/L (3.5-5.1); Sodium 137 mmol/L (136-145)
[2018-12-03] MEDS: MoRPHine SULFATE 4 MG/ML 1 ML CARP\\VIAL IV PRN ×3 (07:24→15:47)
[2018-12-03 07:30] LABS: Albumin Globulin Ratio 0.8 (0.9-2); Alkaline Phosphatase 41 U/L (45-117); Bilirubin,Total 0.6 mg/dl (0.2-1); Globulin 3.6 gm/dl (2.5-4.0); Total Protein 6.4 gm/dl (6.4-8.2)
[2018-12-03 07:31] LABS: Creatine Kinase 10998 U/L (26-192)
[2018-12-03] MEDS: DICLOFENAC SOD 1% GEL 100 GM TUBE EXT SCH ×4 (08:27→21:30)
[2018-12-03] MEDS: DOCUSATE SODIUM 100 MG CAP PO SCH ×2 (08:33→21:35)
[2018-12-03] MEDS: MAGNESIUM HYDROXIDE SUSP 30 ML UDC PO PRN (08:33)
--- NOTE | 2018-12-03 08:56 | Family Medicine Progress Note ---
Date of Service December 03, 2018 Assessment & Plan (1) Rhabdomyolysis: Hillary Guzman is a 18 y.o female with no significant medical history admitted for management and treatment of acute lumbar paraspinal pain likely secondary to rhabdomyolysis. 1. Rhabdomyolysis -Causing acute lumbar paraspinal pain -Secondary to strenuous weight lifting on 11/29/18 where she used 145 pounds to squat and deadlift after not weightlifiting for several years -CT of lumbar spine at [facility] on 12/01: mild annular bulge suggested from L2- L4; mild diffuse bulge L4-L5; mild facet arthropathy L4-L5; mild posterior disc bulge L5-S1; Facet Arthropathy L5-S1 -MRI lumbar spine: bilateral paraspinal muscles with edema, concern for myositis vs myonecrosis vs rhabdomyolysis, no evidence of discitis -CRP elevated at 8.89 and ESR of 16 -Discussed case with Dr. Kemp (ortho) and Dr. Jj (rheumatology) and both concurred muscle tear as the etiology of elevated CK markers -CK 19,903 on admission and most recent of 10k; -Continue aggressive IVF and pain management -Pain management: morphine, toradol, tylenol, tramadol, Volteran gel, Lidocaine patch has not been helpful -Toradol 30mg q6hr added along with dilaudid 0.2 q2hr PrN for severe pain, K- pad added 2. Lumbar paraspinal pain -Secondary to rhabdomyolysis vs myositis with likely muscle tear -history, physical exam findings, and serum labs consistent with rhabdomyolysis -she has been afebrile with normal wbc -Given Vanc x1 and Clinda in ED; d/royal abx as infectious process unlikely FEN/GI Fluids: continue IVF NS at 175 cc/hr Electrolytes: monitor and replace as needed Nutrition: Regular diet Activity: oob with assist DVT PPX: none due to low risk GI PPX: None Code: Full Code Dispo: continue inpatient admission for treatment of rhabdomyolysis. Will discharge to home when at baseline. (2) Low back pain: (3) Myositis: Subjective continues to have back pain. significant. unable to move much. no fever no chest pain, shortness of breath urinating well Physical Exam 2 Vital Signs (Past 24 Hours): Last Vital Signs Temp 37 C 12/03/18 07:37 Pulse 69 12/03/18 07:37 Resp 18 12/03/18 07:37 BP 119/75 12/03/18 07:37 Pulse Ox 96 12/03/18 07:37 Constitutional: WD/WN, vitals as above Respiratory: normal respiratory effort, lungs clear to auscultation Cardiovascular: RRR, no murmur, no edema _ (1) Rhabdomyolysis Encounter type: Rhabdomyolysis type: (2) Low back pain Back pain laterality: Chronicity: Sciatica laterality: Sciatica presence : (3) Myositis Laterality: Myositis location: Myositis type:
--- NOTE | 2018-12-03 09:53 | Progress Note ---
DATE: 12/03/2018 She is about the same as far as pain is concerned, but she is alert, oriented, has been to the bathroom. I think she is trending in the right direction. White cell count has declined. She is still anemic secondary to the bleeding. Enzyme is pending. ASSESSMENT: Rhabdomyolysis and back pain post-trauma through weight training. PLAN: Hydration only and pain control is really the methodology of care. There is nothing exotic. Surgery in my opinion is contraindicated. I will continue to follow her. I anticipate her being here for the next couple days though as well. She may be a candidate for going home, bed rest, home health kind of issue as well and even a hospital bed to change positions.
[2018-12-03] MEDS: POLYETHYLENE (MIRALAX) 17 GM PACK PO PRN (19:43)
[2018-12-03] MEDS: LIDOCAINE 5% 1 PATCH TD SCH (21:35)
[2018-12-03] MEDS: ZOLPIDEM TARTRATE 5 MG TAB PO PRN (21:36)
[2018-12-04] MEDS: KETOROLAC 30 MG/ML VIAL IV SCH ×3 (03:16→15:45)
[2018-12-04] MEDS: SODIUM CHLORIDE 0.9% 1000ML 1,000 ML IV SCH ×4 (03:16→20:32)
[2018-12-04] MEDS: MoRPHine SULFATE 4 MG/ML 1 ML CARP\\VIAL IV PRN ×2 (05:33→17:16)
[2018-12-04 06:32] LABS: Basophils # (auto) 0.05 K/uL (0-0.2); Basophils % (auto) 0.6 %; Eosinophils # (auto) 0.56 K/uL (0-0.5); Eosinophils % (auto) 6.5 %; Hematocrit (blood only) 34.7 % (37-47); Hemoglobin 11.7 g/dL (12.0-16.0); Immature Granulocytes # (auto) 0.03 K/uL (0.00-0.02); Immature Granulocytes % (auto) 0.3 %; Lymphocytes # (auto) 1.92 K/uL (1.2-3.4); Lymphocytes % (auto) 22.2 %; Mean Corpuscular Hgb Conc 33.7 g/dL (32-36); Mean Corpuscular Volume 87.8 fL (80-100); Mean Platelet Volume 9.8 fL (7.4-10.4); Monocytes # (auto) 0.49 K/uL (0.11-0.59); Monocytes % (auto) 5.7 %; Neutrophils # (auto) 5.59 K/uL (1.4-6.5); Neutrophils % (auto) 64.7 %; Platelet Count 290 K/uL (130-400); RDW Coefficient of Variation 12.6 % (11.5-14.5); RDW Standard Deviation 41.1 fL (36.4-46.3); Red Blood Count 3.95 M/uL (4.2-5.4); White Blood Count 8.64 K/uL (4.8-10.8)
[2018-12-04 07:03] LABS: Alanine Aminotransferase 113 U/L (12-78); Albumin Level 2.6 gm/dl (3.4-5.0); Aspartate Aminotransferase 185 U/L (15-37); Blood Urea Nitrogen 6 mg/dl (7-18); Carbon Dioxide 25 mmol/L (21-32); Chloride 106 mmol/L (98-107); Creatinine Clr Calc Pharmacy 147.8 ml/min; Est GFR (African American) > 150.0; Glucose 81 mg/dl (70-99); Potassium 3.7 mmol/L (3.5-5.1); Sodium 137 mmol/L (136-145)
[2018-12-04 07:06] LABS: Albumin Globulin Ratio 0.7 (0.9-2); Alkaline Phosphatase 56 U/L (45-117); Bilirubin,Total 0.4 mg/dl (0.2-1); Globulin 3.5 gm/dl (2.5-4.0); Total Protein 6.1 gm/dl (6.4-8.2)
[2018-12-04] MEDS: DICLOFENAC SOD 1% GEL 100 GM TUBE EXT SCH ×3 (08:02→17:18)
[2018-12-04] MEDS: HYDROmorphone INJ 0.5 MG/0.5 ML SYR IV PRN ×2 (08:18→10:27)
[2018-12-04] MEDS: DOCUSATE SODIUM 100 MG CAP PO SCH (08:20)
[2018-12-04] MEDS: POLYETHYLENE (MIRALAX) 17 GM PACK PO PRN (09:23)
[2018-12-04] MEDS ORDERED: POLYETHYLENE (MIRALAX) 17 GM PACK PO PRN (11:49)
--- NOTE | 2018-12-04 11:52 | Family Medicine Progress Note ---
Addendum entered and electronically signed by Wil Schwartz DO 12/04/18 19: 02: Addendum (Blank) Addendum December 04, 2018 18:57 1630- Resident Physician paged for pt complaining of severe R hip pain. Pt given 10 mg PO flexeril and instructed to support low back with pillows as she has remained in R Lateral decubitus position for extended period of time. Night resident will monitor, instructed to give more dilaudid if necessary. Original Note: Date of Service December 04, 2018 Assessment & Plan (1) Rhabdomyolysis: 18 y/o F with no significant medical history admitted for management and treatment of acute lumbar paraspinal pain likely secondary to rhabdomyolysis. 1) Rhabdomyolysis -Causing acute lumbar paraspinal pain -Secondary to strenuous weight lifting on 11/29/18 where she used 145 pounds to squat and deadlift after not weightlifiting for several years -CT of lumbar spine at [facility] on 12/01: mild annular bulge suggested from L2- L4; mild diffuse bulge L4-L5; mild facet arthropathy L4-L5; mild posterior disc bulge L5-S1; Facet Arthropathy L5-S1 -MRI lumbar spine: bilateral paraspinal muscles with edema, concern for myositis vs myonecrosis vs rhabdomyolysis, no evidence of discitis -CRP elevated at 8.89 and ESR of 16 -Case discussed with Dr. Kemp (ortho) and Dr. Jj (rheumatology) and both concurred muscle tear as the etiology of elevated CK markers -CK 19,903 on admission and most recent of 8680 -Continue aggressive IVF and pain management: morphine, toradol, tylenol, tramadol, Volteran gel, Lidocaine patch has not been helpful -Toradol 30mg q6hr added along with dilaudid 1mg q2hr PrN for severe pain, K- pad added -cont encourage bed rest, OOB w/assistance 2) Lumbar paraspinal pain -Secondary to rhabdomyolysis vs myositis with likely muscle tear -history, physical exam findings, and serum labs consistent with rhabdomyolysis -she has been afebrile with normal wbc -Given Vanc x1 and Clinda in ED; d/royal abx as infectious process unlikely 3) Constipation -cont colace. Miralax added today -will cont monitor FEN: NSS 175 cc/hr, Regular Diet FULL DVT Prophylaxis: None due to low risk Dispo: Continue inpatient admission for treatment of rhabdomyolysis. Will discharge to home when at baseline. Supervising Physician Co-Signing Physician Notes Resident Physician Supervision Note: I independently interviewed and examined the patient and verified the olivarez history and physical, reviewed labs and image studies, discussed the case with the resident Dr. Schwartz and agree with the findings and care plan. Subjective 18 y/o F found in bed this AM in mild acute distress. Pt notes ongoing back/hip pain, improved with pain meds. Pt needs assistance to go to bathroom, no issues voiding. Tolerating PO intake. Pt has no other acute concerns or complaints. Review of Systems All systems reviewed & are unremarkable except as noted in HPI & below Physical Exam 2 Vital Signs (Past 24 Hours): Last Vital Signs Temp 36.9 C 12/04/18 08:02 Pulse 71 12/04/18 08:02 Resp 18 12/04/18 08:02 BP 106/66 12/04/18 08:02 Pulse Ox 97 12/04/18 08:02 Constitutional: WD/WN, vitals as above Eyes: PERRL, conjunctivae normal, anicteric sclerae ENMT: external ear and nose normal, oropharynx normal Respiratory: normal respiratory effort, lungs clear to auscultation Cardiovascular: RRR, no murmur, no edema Gastrointestinal (Abdomen): normal bowel sounds, soft, nontender, no hepatosplenomegaly Musculoskeletal: tender LBP. Pt needs assistance with ambulation Skin: no rashes, warm and dry Psychiatric: A+Ox3, euthymic affect Results & Data Laboratory Results Laboratory Results - last 24 hr 12/04/18 12/04/18 12/04/18 05:27 05:27 05:27 WBC 8.64 RBC 3.95 L Hgb 11.7 L Hct 34.7 L MCV 87.8 MCH 29.6 MCHC 33.7 RDW Std Deviation 41.1 RDW Coeff of Kirsten 12.6 Plt Count 290 MPV 9.8 Immature Gran % (Auto) 0.3 Neut % (Auto) 64.7 Lymph % (Auto) 22.2 [place] % (Auto) 5.7 Eos % (Auto) 6.5 Baso % (Auto) 0.6 Immature Gran # (Auto) 0.03 H Neut # (Auto) 5.59 Lymph # (Auto) 1.92 [place] # (Auto) 0.49 Eos # (Auto) 0.56 H Baso # (Auto) 0.05 Sodium 137 Potassium 3.7 Chloride 106 Carbon Dioxide 25 Anion Gap 6.0 BUN 6 L Creatinine 0.55 L Est Cr Clr Drug Dosing 147.8 Est GFR ( Amer) > 150.0 Est GFR (Non-Af Amer) 135.0 BUN/Creatinine Ratio 10.0 Glucose 81 Calcium 8.0 L Total Bilirubin 0.4 AST 185 H ALT 113 H Alkaline Phosphatase 56 Total Creatine Kinase 8680 H Total Protein 6.1 L Albumin 2.6 L Globulin 3.5 Albumin/Globulin Ratio 0.7 L Medications Administered Current Inpatient Medications Acetaminophen (Tylenol) 650 mg PO Q4H PRN PRN Reason: pain/fever Stop: 12/31/18 20:43 Last Admin: 12/03/18 23:26 Dose: 650 mg Al Hydrox/Mg Hydrox/Simethicone (Maalox) 30 ml PO Q6H PRN PRN Reason: Dyspepsia Stop: 12/31/18 20:43 Diclofenac Sodium (Voltaren 1% Top) 1 appln EXT QID [facility] Stop: 01/01/19 08:59 Last Admin: 12/04/18 08:02 Dose: 1 appln Docusate Sodium (Colace) 100 mg PO BID [facility] Stop: 01/01/19 20:59 Last Admin: 12/04/18 08:20 Dose: 100 mg Hydromorphone HCl (Dilaudid) 1 mg IV Q2H PRN PRN Reason: Severe Pain Stop: 12/16/18 11:22 Sodium Chloride (Nss 1000ml) 1,000 mls @ 175 mls/hr IV .Q5H43M [facility] Stop: 01/01/19 17:59 Last Admin: 12/04/18 09:00 Dose: 175 mls/hr Ketorolac Tromethamine (Toradol) 30 mg IV Q6H [facility] Stop: 12/07/18 09:59 Last Admin: 12/04/18 11:40 Dose: 30 mg Lidocaine (Lidoderm 5%) 1 patch TD HS [facility] Stop: 12/31/18 23:09 Last Admin: 12/03/18 21:35 Dose: 1 patch Magnesium Hydroxide (Milk Of Magnesia) 30 ml PO Q6H PRN PRN Reason: Constipation Stop: 12/31/18 20:43 Last Admin: 12/03/18 08:33 Dose: 30 ml Miscellaneous (Remove Lidoderm Patch) 1 ea N/A QAM [facility] Stop: 01/01/19 08:59 Last Admin: 12/04/18 08:08 Dose: 1 ea Morphine Sulfate (Morphine Sulfate) 4 mg IV Q3H PRN PRN Reason: Pain Stop: 12/15/18 20:43 Last Admin: 12/04/18 05:33 Dose: 4 mg Ondansetron HCl (Zofran) 4 mg IV Q6H PRN PRN Reason: Nausea Stop: 12/31/18 20:43 Last Admin: 12/04/18 09:23 Dose: 4 mg Polyethylene Glycol (Miralax Powder Packet) 17 gm PO Q6 PRN PRN Reason: Constipation Stop: 12/31/18 20:43 Tramadol HCl (Ultram) 50 mg PO Q4H PRN PRN Reason: Pain Stop: 12/31/18 20:43 Last Admin: 12/03/18 17:21 Dose: 50 mg Zolpidem Tartrate (Ambien) 5 mg PO HS PRN PRN Reason: Sleep Stop: 12/31/18 20:43 Last Admin: 12/03/18 21:36 Dose: 5 mg Resident Activity Tracking Resident Involvement: Resident Care Provided Care Provided: [facility] Medicine _ (1) Rhabdomyolysis Encounter type: Rhabdomyolysis type:
[2018-12-04] MEDS: HYDROmorphone INJ 1 MG/ML SYRINGE IV PRN ×3 (13:16→17:57)
[2018-12-04] MEDS ORDERED: POLYETHYLENE (MIRALAX) 17 GM PACK PO STA (14:19)
[2018-12-04] MEDS ORDERED: CYCLOBENZAPRINE HCL 10 MG TAB PO STA (18:23)
[2018-12-04] MEDS ORDERED: HYDROmorphone INJ 2 MG/ML SYR/VIAL ONE (19:16)
[2018-12-04] MEDS ORDERED: HYDROmorphone INJ 2 MG/ML SYR/VIAL IV STA (20:11)
[2018-12-04] MEDS ORDERED: predniSONE 20 MG TAB PO STA (20:11)
[2018-12-04] MEDS ORDERED: LORazepam 0.5 MG/1 ML VIAL IV STA (20:12)
[2018-12-04] MEDS ORDERED: DiphenhydrAMINE HCL 50 MG/ML VIAL IV SCH (20:30)
[2018-12-04] MEDS ORDERED: PROCHLORPERAZINE 10 MG in SYRINGE 8 ML IV SCH (20:30)
[2018-12-04] MEDS ORDERED: LORazepam 2 MG/4 ML VIAL ONE (23:16)
[2018-12-04] MEDS ORDERED: LORazepam 1 MG/2 ML VIAL IV ONE (23:30)
[2018-12-05] MEDS ORDERED: GADOBUTROL 65ML VIAL IV PRN (01:01)
[2018-12-05] MEDS: ACETAMINOPHEN SOL 650 MG/20.3 ML UDC PO SCH ×4 (01:24→17:34)
[2018-12-05] MEDS: LIDOCAINE 5% 1 PATCH TD SCH ×2 (01:24→21:11)
[2018-12-05] MEDS: DOCUSATE SODIUM 100 MG CAP PO SCH ×3 (01:24→21:17)
[2018-12-05] MEDS: KETOROLAC 30 MG/ML VIAL IV SCH ×5 (01:24→21:55)
[2018-12-05] MEDS: DICLOFENAC SOD 1% GEL 100 GM TUBE EXT SCH ×5 (01:24→21:55)
[2018-12-05] MEDS: SODIUM CHLORIDE 0.9% 1000ML 1,000 ML IV SCH ×5 (05:01→20:20)
[2018-12-05 06:29] LABS: Creatinine Clr Calc Pharmacy 137.8 ml/min; Est GFR (African American) > 150.0; Est GFR (Non-African American) 131.9
[2018-12-05 07:26] LABS: Eosinophils # (auto) 0.01 K/uL (0-0.5); Eosinophils % (auto) 0.2 %; Hematocrit (blood only) 35.9 % (37-47); Hemoglobin 12.3 g/dL (12.0-16.0); Immature Granulocytes # (auto) 0.02 K/uL (0.00-0.02); Immature Granulocytes % (auto) 0.3 %; Lymphocytes # (auto) 0.68 K/uL (1.2-3.4); Lymphocytes % (auto) 10.7 %; Mean Corpuscular Hgb Conc 34.3 g/dL (32-36); Mean Corpuscular Volume 86.5 fL (80-100); Mean Platelet Volume 9.7 fL (7.4-10.4); Monocytes # (auto) 0.04 K/uL (0.11-0.59); Monocytes % (auto) 0.6 %; Neutrophils # (auto) 5.61 K/uL (1.4-6.5); Neutrophils % (auto) 88.2 %; Platelet Count 340 K/uL (130-400); RDW Coefficient of Variation 12.3 % (11.5-14.5); RDW Standard Deviation 39.2 fL (36.4-46.3); Red Blood Count 4.15 M/uL (4.2-5.4); White Blood Count 6.36 K/uL (4.8-10.8)
[2018-12-05 07:30] LABS: Albumin Level 2.9 gm/dl (3.4-5.0); BUN Creatinine Ratio 9.1 (10-20); Calcium 8.8 mg/dl (8.5-10.1); Creatinine Clr Calc Pharmacy 125.1 ml/min; Est GFR (African American) 148.1; Est GFR (Non-African American) 127.8; Potassium 3.9 mmol/L (3.5-5.1)
[2018-12-05 07:45] LABS: Albumin Globulin Ratio 0.7 (0.9-2); Bilirubin,Total 0.3 mg/dl (0.2-1); Globulin 4.4 gm/dl (2.5-4.0); Total Protein 7.3 gm/dl (6.4-8.2)
--- NOTE | 2018-12-05 08:58 | Magnetic Resonance Report ---
MR lumbar spine wo/w con CLINICAL HISTORY: 18 years-old Female with ?myositis, increasing pain. Acute low back pain COMPARISON: None. TECHNIQUE: Multiplanar, multi sequence MRI of the lumbar spine was performed without intravenous cont rast. FINDINGS: The independent freight agent localizer images demonstrate moderate urinary bladder distention. The study is motion degra ded. Conus medullaris terminates at the T12-L1 level. Signal within the imaged thoracic spinal cord a nd cauda equina appear unremarkable. Severe multifocal and patchy areas of intramuscular edema redemo nstrated about the erector paraspinal musculature, left greater than right. Specifically, there is pr ogressive peripheral enhancement with central nonenhancement about the left multifidus lumborum muscu lature at the level of L4 (image 19 series 15). No drainable fluid collection. No epidural abscess. N o significant intrinsic increased T1 signal to suggest a large volume of hemorrhage. T12-L1: No central canal or neural foraminal stenosis. L1-L2: No central canal or neural foraminal stenosis. L2-L3: No central canal or neural foraminal stenosis. L3-L4: No central canal or neural foraminal stenosis. L4-L5: No central canal or neural foraminal stenosis. L5-S1: No central canal or neural foraminal stenosis. IMPRESSION: 1. Motion degraded exam. 2. Mildly progressed marked intramuscular edema of the paraspinal musculature, left greater than righ t is compatible with a nonspecific infectious or inflammatory myositis. Additionally, there is progre ssive peripheral enhancement about the left multifidus lumborum at the level of L4 with nonenhancemen t of the central musculature suggestive of superimposed myonecrosis/rhabdomyolysis. Clinical follow-u p with laboratory correlation recommended. 3. No epidural collections or drainable fluid collections identified at this time. 4. No significant central canal or foraminal narrowing. 5. No focal bone marrow edema. The above report was generated using voice recognition software. It may contain grammatical, syntax o r spelling errors. Electronically signed by: Chidi Espinosa M.D. 12/05/2018 8:57 AM
[2018-12-05 09:19] LABS: C Reactive Protein 7.91 mg/dl (0-0.29)
[2018-12-05] MEDS: HYDROmorphone INJ 2 MG/ML SYR/VIAL IV PRN ×2 (12:25→14:23)
[2018-12-05] MEDS: MoRPHine SULFATE 4 MG/ML 1 ML CARP\\VIAL IV PRN (14:11)
[2018-12-05] MEDS ORDERED: NALOXONE HCL 0.4 MG/1 ML VIAL/CARP IV PRN (14:46)
--- NOTE | 2018-12-05 16:12 | Family Medicine Progress Note ---
Date of Service December 05, 2018 Assessment & Plan (1) Rhabdomyolysis: 18 y/o F with no significant medical history admitted for management and treatment of acute lumbar paraspinal pain likely secondary to muscle tear/ rhabdomyolysis. 1) Acute pain 2/2 lumbar paraspinal muscle tear -Secondary to strenuous weight lifting on 11/29/18 where she used 145 pounds to squat and deadlift after not weightlifiting for several years -CT of lumbar spine at [facility] on 12/01: mild annular bulge suggested from L2- L4; mild diffuse bulge L4-L5; mild facet arthropathy L4-L5; mild posterior disc bulge L5-S1; Facet Arthropathy L5-S1 -MRI lumbar spine: bilateral paraspinal muscles with edema, concern for myositis vs myonecrosis vs rhabdomyolysis, no evidence of discitis . Repeat MRI 12/05 showed mildly progressed intramuscular edema of paraspinals -Discussed case with Dr. Kemp (ortho) and Dr. Jj (rheumatology) and both concurred muscle tear as the etiology of elevated CK markers -CK 19,903 on admission and most recent of 5824 . Rhabdo unlikely to be causing pain. Given Vanc x1 and Clinda in ED; d/royal abx as infectious process unlikely -Continue aggressive IVF and pain management: morphine, toradol, tylenol, tramadol, Toradol, Volteran gel, K pad, Lidocaine patch has not been helpful -Added amitriptyline 50 mg qPM, gabapentin 300 mg TID, COMMERCIAL FR[employer] LOAD [employer]IVER dilaudid 0.5 mg q15min 2) Constipation -one very small BM this AM -cont colace. Miralax prn -will cont monitor FEN: NSS 175 cc/hr, Regular Diet FULL DVT Prophylaxis: Stockings, low risk Dispo: Continue inpatient admission for treatment of pain primarily/ rhabdomyolysis. Will discharge to home when able to be switched to oral analgesics Supervising Physician Co-Signing Physician Notes I personally examined the patient and verified all olivarez points of history and exam, discussed case, and agree with decision making with Dr Schwartz. ongoing severe pain. hurts with any movement. pain control not yet good. pain going down left leg to foot as well. missing school and work - would like notes. vitals noted appearing uncomfortable and in pain. no pallor or icterus. face slightly flushed. breathing unlabored no accessory muscles good effort. no focal neuro deficits paraspinal muscle tear - traumatic after weight lifting injury. pain control, supportive care. continue to follow closely - but MRI findings + hx fit most with post trauma far more than inflammatory/infectious. escalate narcotics to COMMERCIAL FRONT LOAD [employer]IVER for now, conitnue toradol and scheduled tylenol. discussed risks/benefits and will add gabapentin/amitryiptilline. continue to follow clinically, serial labs/inflammatory markers, serial imaging as warranted. ortho/spine input apprecaited. add brace. otherwise as above Subjective 18 y/o F found in bed this AM in mild acute distress. Overnight, pt was in severe pain and received 4 mg dilaudid, compazine/diphenhydramine, 1+2 mg ativan. Pt notes ongoing back/hip pain, improved with pain meds briefly and then goes back into severe pain. Pt needs assistance to go to bathroom, no issues voiding. Tolerating PO intake. Pt has no other acute concerns or complaints. Physical Exam 2 Vital Signs (Past 24 Hours): Last Vital Signs Temp 36.7 C 12/05/18 15:32 Pulse 85 12/05/18 15:32 Resp 16 12/05/18 15:32 BP 125/71 12/05/18 15:32 Pulse Ox 95 12/05/18 15:32 Constitutional: WD/WN, vitals as above Eyes: PERRL, conjunctivae normal, anicteric sclerae ENMT: external ear and nose normal, oropharynx normal Respiratory: normal respiratory effort, lungs clear to auscultation Cardiovascular: RRR, no murmur, no edema Gastrointestinal (Abdomen): normal bowel sounds, soft, nontender, no hepatosplenomegaly Musculoskeletal: tender paraspinal musculature lumbars Skin: no rashes, warm and dry Psychiatric: A+Ox3, euthymic affect Results & Data Laboratory Results Laboratory Results - last 24 hr 12/05/18 12/05/18 12/05/18 05:38 05:38 05:38 WBC 6.36 RBC 4.15 L Hgb 12.3 Hct 35.9 L MCV 86.5 MCH 29.6 MCHC 34.3 RDW Std Deviation 39.2 RDW Coeff of Kirsten 12.3 Plt Count 340 MPV 9.7 Immature Gran % (Auto) 0.3 Neut % (Auto) 88.2 Lymph % (Auto) 10.7 [place] % (Auto) 0.6 Eos % (Auto) 0.2 Baso % (Auto) 0.0 Immature Gran # (Auto) 0.02 Neut # (Auto) 5.61 Lymph # (Auto) 0.68 L [place] # (Auto) 0.04 L Eos # (Auto) 0.01 Baso # (Auto) 0.00 Sodium 137 Potassium 3.9 Chloride 105 Carbon Dioxide 24 Anion Gap 8.0 BUN 6 L Creatinine 0.65 Est Cr Clr Drug Dosing 125.1 Est GFR ( Amer) 148.1 Est GFR (Non-Af Amer) 127.8 BUN/Creatinine Ratio 9.1 L Glucose 138 H Calcium 8.8 Total Bilirubin 0.3 AST 152 H ALT 122 H Alkaline Phosphatase 67 Total Creatine Kinase 5824 H C-Reactive Protein 7.91 H Total Protein 7.3 Albumin 2.9 L Globulin 4.4 H Albumin/Globulin Ratio 0.7 L 12/05/18 05:42 WBC RBC Hgb Hct MCV MCH MCHC RDW Std Deviation RDW Coeff of Kirsten Plt Count MPV Immature Gran % (Auto) Neut % (Auto) Lymph % (Auto) [place] % (Auto) Eos % (Auto) Baso % (Auto) Immature Gran # (Auto) Neut # (Auto) Lymph # (Auto) [place] # (Auto) Eos # (Auto) Baso # (Auto) Sodium Potassium Chloride Carbon Dioxide Anion Gap BUN Creatinine 0.59 L Est Cr Clr Drug Dosing 137.8 Est GFR ( Amer) > 150.0 Est GFR (Non-Af Amer) 131.9 BUN/Creatinine Ratio Glucose Calcium Total Bilirubin AST ALT Alkaline Phosphatase Total Creatine Kinase C-Reactive Protein Total Protein Albumin Globulin Albumin/Globulin Ratio Medications Administered Current Inpatient Medications Acetaminophen (Tylenol) 650 mg PO Q6 [facility] Stop: 12/07/18 00:00 Last Admin: 12/05/18 12:26 Dose: 650 mg Al Hydrox/Mg Hydrox/Simethicone (Maalox) 30 ml PO Q6H PRN PRN Reason: Dyspepsia Stop: 12/31/18 20:43 Amitriptyline HCl (Elavil) 50 mg PO QPM [facility] Stop: 01/04/19 20:59 Diclofenac Sodium (Voltaren 1% Top) 1 appln EXT QID [facility] Stop: 01/01/19 08:59 Last Admin: 12/05/18 12:26 Dose: 1 appln Docusate Sodium (Colace) 100 mg PO BID [facility] Stop: 01/01/19 20:59 Last Admin: 12/05/18 12:03 Dose: Not Given Gabapentin (Neurontin) 300 mg PO TID [facility] Stop: 01/04/19 20:59 Gadobutrol (Gadavist 65ml) 6.8 ml IV ONCE PRN PRN Reason: Interaction Checking Stop: 12/09/18 01:00 Last Admin: 12/05/18 00:35 Dose: 6.8 ml Hydromorphone HCl (Dilaudid) 2 mg IV Q2H PRN PRN Reason: Pain Stop: 12/18/18 19:17 Last Admin: 12/05/18 14:23 Dose: 2 mg Hydromorphone HCl (Dilaudid Phototypesetter Operator) 0.5 mg IV Q15M PRN; Protocol PRN Reason: Pain Stop: 12/19/18 14:25 Sodium Chloride (Nss 1000ml) 1,000 mls @ 175 mls/hr IV .Q5H43M [facility] Stop: 01/01/19 17:59 Last Admin: 12/05/18 14:15 Dose: 175 mls/hr Sodium Chloride (Nss 1000ml) 1,000 mls @ 15 mls/hr IV .Q24H [facility] Stop: 12/19/18 14:59 Ketorolac Tromethamine (Toradol) 30 mg IV Q6H [facility] Stop: 12/07/18 09:59 Last Admin: 12/05/18 16:01 Dose: 30 mg Lidocaine (Lidoderm 5%) 1 patch TD HS [facility] Stop: 12/31/18 23:09 Last Admin: 12/05/18 01:24 Dose: Not Given Magnesium Hydroxide (Milk Of Magnesia) 30 ml PO Q6H PRN PRN Reason: Constipation Stop: 12/31/18 20:43 Last Admin: 12/03/18 08:33 Dose: 30 ml Miscellaneous (Remove Lidoderm Patch) 1 ea N/A QAM [facility] Stop: 01/01/19 08:59 Last Admin: 12/05/18 10:21 Dose: Not Given Morphine Sulfate (Morphine Sulfate) 4 mg IV Q3H PRN PRN Reason: Pain Stop: 12/15/18 20:43 Last Admin: 12/05/18 14:11 Dose: 4 mg Naloxone HCl (Narcan) 0.1 mg IV Q5M PRN; Protocol PRN Reason: Oversedation/Resp Depression Stop: 12/19/18 14:45 Ondansetron HCl (Zofran) 4 mg IV Q6H PRN PRN Reason: Nausea Stop: 12/31/18 20:43 Last Admin: 12/04/18 09:23 Dose: 4 mg Zolpidem Tartrate (Ambien) 5 mg PO HS PRN PRN Reason: Sleep Stop: 12/31/18 20:43 Last Admin: 12/03/18 21:36 Dose: 5 mg Resident Activity Tracking Resident Involvement: Resident Care Provided Care Provided: Adult [facility] Medicine _ (1) Rhabdomyolysis Encounter type: Rhabdomyolysis type:
[2018-12-05] MEDS: HYDROmorphone HCL 0.5MG/ML 50 ML CASSETTE IV PRN ×2 (17:50→17:56)
[2018-12-05] MEDS ORDERED: AMITRIPTYLINE HCL 25 MG TAB PO SCH (21:00)
[2018-12-05] MEDS: AMITRIPTYLINE HCL 25 MG TAB PO SCH (21:10)
[2018-12-05] MEDS: GABAPENTIN 300 MG CAP PO SCH (21:11)
[2018-12-05] MEDS: MAGNESIUM HYDROXIDE SUSP 30 ML UDC PO PRN (21:17)
[2018-12-05] MEDS: ZOLPIDEM TARTRATE 5 MG TAB PO PRN (21:17)
[2018-12-05] MEDS ORDERED: methylPREDNISolone 125 MG in SYRINGE 0 ML IV SCH (23:00)
[2018-12-05 23:39] LABS: Lyme Ab IgG w/WB Rflx Negative (Negative); Lyme Ab IgM w/WB Rflx Negative (Negative)
[2018-12-06 00:21] LABS: Hepatitis B Surface Antigen Neg (Neg)
[2018-12-06] MEDS: ACETAMINOPHEN SOL 650 MG/20.3 ML UDC PO SCH ×4 (00:37→18:27)
[2018-12-06 00:49] LABS: Hepatitis C IgG 13Yrs+Old_Rflx Neg (Neg)
[2018-12-06] MEDS: SODIUM CHLORIDE 0.9% 1000ML 1,000 ML IV SCH ×4 (02:53→18:28)
[2018-12-06] MEDS: KETOROLAC 30 MG/ML VIAL IV SCH ×4 (03:58→22:08)
[2018-12-06] MEDS ORDERED: DiphenhydrAMINE HCL 50 MG/ML VIAL IV ONE (06:15)
[2018-12-06 06:20] LABS: Basophils # (auto) 0.01 K/uL (0-0.2); Basophils % (auto) 0.1 %; Eosinophils # (auto) 0.01 K/uL (0-0.5); Eosinophils % (auto) 0.1 %; Hematocrit (blood only) 35.6 % (37-47); Hemoglobin 12.1 g/dL (12.0-16.0); Immature Granulocytes # (auto) 0.02 K/uL (0.00-0.02); Immature Granulocytes % (auto) 0.3 %; Lymphocytes # (auto) 0.91 K/uL (1.2-3.4); Mean Corpuscular Volume 87.7 fL (80-100); Mean Platelet Volume 9.2 fL (7.4-10.4); Monocytes # (auto) 0.05 K/uL (0.11-0.59); Monocytes % (auto) 0.7 %; Neutrophils # (auto) 5.99 K/uL (1.4-6.5); Neutrophils % (auto) 85.8 %; Platelet Count 330 K/uL (130-400); RDW Coefficient of Variation 12.6 % (11.5-14.5); RDW Standard Deviation 40.4 fL (36.4-46.3); Red Blood Count 4.06 M/uL (4.2-5.4); White Blood Count 6.99 K/uL (4.8-10.8)
[2018-12-06 06:34] LABS: BUN Creatinine Ratio 12.3 (10-20); C Reactive Protein 3.97 mg/dl (0-0.29); Calcium 8.3 mg/dl (8.5-10.1); Creatinine Clr Calc Pharmacy 125.1 ml/min; Est GFR (African American) 148.1; Est GFR (Non-African American) 127.8
[2018-12-06] MEDS: GABAPENTIN 300 MG CAP PO SCH ×3 (07:59→22:07)
[2018-12-06] MEDS: DOCUSATE SODIUM 100 MG CAP PO SCH ×2 (08:01→22:08)
[2018-12-06] MEDS: DICLOFENAC SOD 1% GEL 100 GM TUBE EXT SCH ×4 (08:01→22:08)
[2018-12-06] MEDS ORDERED: cefTRIAXone SODIUM 1,000 MG in DEXTROSE 5% 50 ML IV SCH (15:09)
--- NOTE | 2018-12-06 15:40 | Discharge Summary ---
Date of Service December 06, 2018 Admission HPI Per Admitting Provider 18 y/o F without a significant medical history. The pt was weight lifting 3 days prior including squats an lifts. She initially had some soreness of her lower back which has progressed to severe pain in the lumbar area. She also reports a fever of 102. She denies SOB, CP, N/V or dysuria. She denies any lower extremity muscle weakness. She may have some positional numbness of her LLE which she states comes and goes. She was initially evaluated and discharged from the ER at [facility]. She returns today due to worsening pain and has a persistent fever. An MRI of the lumbar spine demonstrated an abnormal appearance of the bilateral paraspinal muscles with edema, suspected minimal hemorrhage and foci of diminished enhancement within the left paraspinal musculature. The findings suggest myositis with possible myonecrosis/ rhabdomyolysis. Initial labs are consistent with rhabdomyolysis with a CK of 19 ,000. She had a low-grade fever on arrival to the ER. PMH: Denies any medical or surgical history Social: Does not smoke, under aged social drinker, studying criminal justice at [employer] Family: Both parents alive and well Principal Diagnosis intractable LBP Discharge Exam Constitutional WD/WN, vitals as above Eyes PERRL, conjunctivae normal, anicteric sclerae ENMT external ear and nose normal, oropharynx normal Respiratory normal respiratory effort, lungs clear to auscultation Cardiovascular RRR, no murmur, no edema Gastrointestinal (Abdomen) normal bowel sounds, soft, nontender, no hepatosplenomegaly Musculoskeletal very tender lower lumbar paraspinal musculature Skin no rashes, warm and dry Psychiatric A+Ox3, euthymic affect Discharge Data Allergies Allergy/AdvReac Type Severity Reaction Status Date / Time doxycycline Allergy Vomiting Unverified 12/01/18 16:36 amoxicillin AdvReac Hives Unverified 12/01/18 16:36 Consultations 12/01/18 17:35 ED Decision to Admit Stat 12/01/18 20:44 Consult Orthopedic Surgery Stat 12/05/18 18:30 Consult Orthopedic Surgery Routine 12/06/18 09:06 Consult Pain Management Routine Ordered Studies 12/01/18 14:47 MR lumbar spine wo/w con Stat 12/04/18 20:15 MR lumbar spine wo/w con Urgent Hospital Course (1) Rhabdomyolysis: 18 y/o F with no significant PMH presented to [facility] 12/01. The pt was weight lifting 3 days prior including squats an lifts and initially had some soreness of her lower back which has progressed to severe pain in the lumbar area along with a fever of 102 F. Denied any lower extremity muscle weakness. Pt was initially evaluated and discharged from the ER at [facility] [facility] with supportive care. Pt returned to [employer] ER due to worsening pain and a persistent fever and the got a CT scan which revealed herniated disks. Pt was sent to [facility] for an MRI of the lumbar spine which demonstrated an abnormal appearance of the bilateral paraspinal muscles with edema, suspected minimal hemorrhage and foci of diminished enhancement within the left paraspinal musculature. The findings suggested myositis with possible myonecrosis/ rhabdomyolysis. Initial labs were consistent with rhabdomyolysis with a CK of 19 ,000. She had a low-grade fever on arrival to the ER at [facility]. The following is the medical management during her stay here. Intractable LBP. Unclear Etiology. DDx: Paraspinal Muscle Tear, Inflammatory Myositis, Myonecrosis CT of lumbar spine at [facility] on 12/01: mild annular bulge suggested from L2-L4 ; mild diffuse bulge L4-L5; mild facet arthropathy L4-L5; mild posterior disc bulge L5-S1; Facet Arthropathy L5-S1. MRI lumbar spine [facility]: bilateral paraspinal muscles with edema, concern for myositis vs myonecrosis vs rhabdomyolysis, no evidence of discitis. Repeat MRI 12/05 showed mildly progressed intramuscular edema of paraspinals. The discussed case was discussed with Ortho and Rheumatology and both concurred muscle tear as the etiology of elevated CK markers and back pain. CK was 19,903 on admission and most recent of 2900. As CK was coming down, pt was still exhibiting excruciating pain and rhabdo was thought to be unlikely to be causing pain. Pt was given Vanc x1 and Clinda in ED and d/royal as infectious process unlikely. However, given that pt was still in pain and etiology uncertain, pt put on IV rocephin 1 g prior to d/ c. Pain management with morphine, toradol, tylenol, tramadol, Toradol, Volteran gel , K pad, Lidocaine patch has not been helpful. Recently added amitriptyline 50 mg qPM, gabapentin 300 mg TID, PILING CUTTER dilaudid 0.5 mg q15min with still no progression of pain relief. Pt given 4 mg dilaudid prior to ALS transport. DVT Prophylaxis given with stockings and considered low risk. Total Time Total Time Spent Total Time Spent (In Minutes): >30 min Discharge Plan Discharge Items Patient Disposition: Transfer Acute Care Hospital Reason For Visit: RHABDO,MYOSITIS Discharge Diagnosis: Intractable lower back pain 11/19 b/l paraspinal musculature tear/myonecrosis/myositis Condition: Fair Discharge Goals: Decrease discomfort and Improve function Activity: Per 'Additional Instructions' section Non-emergency contact: Primary Care Provider Call non-emergency contact if: your symptoms worsen and your pain is worsening Diet: Regular Addtl Provider Instructions: 18 y/o F with no significant PMH presented to [facility] 12/01. The pt was weight lifting 3 days prior including squats an lifts and initially had some soreness of her lower back which has progressed to severe pain in the lumbar area along with a fever of 102 F. Denied any lower extremity muscle weakness. Pt was initially evaluated and discharged from the ER at [facility] with supportive care. Pt returned to [facility] ER due to worsening pain and a persistent fever and the got a CT scan which revealed herniated disks. Pt was sent to [facility] for an MRI of the lumbar spine which demonstrated an abnormal appearance of the bilateral paraspinal muscles with edema, suspected minimal hemorrhage and foci of diminished enhancement within the left paraspinal musculature. The findings suggested myositis with possible myonecrosis/ rhabdomyolysis. Initial labs were consistent with rhabdomyolysis with a CK of 19 ,000. She had a low-grade fever on arrival to the ER at [facility]. The following is the medical management during her stay here. Intractable LBP. Unclear Etiology. DDx: Paraspinal Muscle Tear, Inflammatory Myositis, Myonecrosis CT of lumbar spine at [facility] on 12/01: mild annular bulge suggested from L2-L4 ; mild diffuse bulge L4-L5; mild facet arthropathy L4-L5; mild posterior disc bulge L5-S1; Facet Arthropathy L5-S1. MRI lumbar spine [facility]: bilateral paraspinal muscles with edema, concern for myositis vs myonecrosis vs rhabdomyolysis, no evidence of discitis. Repeat MRI 12/05 showed mildly progressed intramuscular edema of paraspinals. The discussed case was discussed with Ortho and Rheumatology and both concurred muscle tear as the etiology of elevated CK markers and back pain. CK was 19,903 on admission and most recent of 2900. As CK was coming down, pt was still exhibiting excruciating pain and rhabdo was thought to be unlikely to be causing pain. Pt was given Vanc x1 and Clinda in ED and d/royal as infectious process unlikely. However, given that pt was still in pain and etiology uncertain, pt put on IV rocephin 1 g prior to d/ c. Pain management with morphine, toradol, tylenol, tramadol, Toradol, Volteran gel, K pad, Lidocaine patch has not been helpful. Recently added amitriptyline 50 mg qPM, gabapentin 300 mg TID, PILING CUTTER dilaudid 0.5 mg q15min with still no progression of pain relief. Pt given 4 mg dilaudid prior to ALS transport. DVT Prophylaxis given with stockings and considered low risk. Prescriptions: Continue norethindrone ac-eth estradiol [ ()] 1.5-30 mg-mcg Tablet 1 tab PO DAILY RF: 0 Stand-Alone Forms: [facility] Discharge Orders: Discharge Order (Routine); Ordered 12/06/18 Ordered By: Wil Schwartz Admission Data Admit Date/Time: 12/01/18 19:24 Attending Provider: Tee Hirsch Admit Provider: Jack Harrison Primary Care Provider: [facility] Other Providers: Jack Harrison ; Dillon Whitehead ; Lilly Santos ; Mirela Cline Service: Medical Supervising Physician Co-Signing Physician Notes I personally examined the patient and verified all olivarez points of history and exam, discussed case, and agree with decision making with Dr Schwartz. Feeling worse, pain worse. Whenever I first see her today she is actually in the bed screaming and writhing in pain, despite a PILING CUTTER. Later when I revisit to discuss further plans she still appears uncomfortable but is laying on her side and reading on her phone. No new symptoms otherwise, but ongoing very intense low back pain with radiation to legs. Vitals noted, in general she is lying in bed initially appearing extremely uncomfortable crying in pain later uncomfortable but less than before. HEENT normocephalic atraumatic mucous membranes are moist. Lungs are unlabored no accessory muscle use good effort. Skin is somewhat flushed but no rashes pallor or icterus. Musculoskeletal shows her lumbar paraspinals to be extremely hypertonic and tender but there is no crepitus and no skin changes. Neuro shows no focal deficits. Low back pain/inflammatory paraspinal changesthe working diagnosis is that of a bilateral paraspinal tear related to weightlifting. This certainly could be quite painful and may explain her entire picture. (In discussion with pain management here, should this continue to be the most likely diagnosis, something along the lines of an epidural for temporary pain relief may be in order). Certainly her labs showing improvement in CPK and CRP would fit with this, her lack of ongoing fevers or white counts would fit with this, and her HPI does fit with this. That said, her bedside presentation is that of ongoing worsening and the radiographic findings of her musculature or not entirely consistent with a muscle tear. We discussed this with patient and mom in depth. Given the not entirely clear etiology, we will restart antibiotics with ceftriaxone for empiric coverage, and transfer to tertiary care with the thought of possibly a muscle biopsy being in order if she does not start to quickly turn the corner. This, combined with the fact that if anything were to degenerate we would not really have the ability to debride makes a move to tertiary care warranted. We discussed however that if the working diagnosis is correct, the transfer to tertiary care would be for nothing more than what can already be done here, but given her deterioration at the bedside, we felt that appropriate to transfer at this time. Patient mom expressed understanding, I discussed case with the [facility] who accepted in transfer. Patient stable for ACLS ground transfer otherwise as above. Resident Activity Tracking Resident Involvement: Resident Care Provided Care Provided: Adult Hospital Medicine
[2018-12-06] MEDS ORDERED: cefTRIAXone SODIUM 1,000 MG in SODIUM CHLOR 0.9% AD-VAN 50 ML IV SCH (16:00)
[2018-12-06] MEDS ORDERED: HYDROmorphone INJ 2 MG/ML SYR/VIAL IV STA (17:42)
[2018-12-06] MEDS: AMITRIPTYLINE HCL 25 MG TAB PO SCH (22:06)
[2018-12-06] MEDS: LIDOCAINE 5% 1 PATCH TD SCH (22:06)
[2018-12-07] MEDS ORDERED: HYDROmorphone INJ 2 MG/ML SYR/VIAL ONE
[2018-12-08 17:29] LABS: Anaplasma phagocytophila IgM <1:20 (<1:20); Anti Nuclear Antibody Screen NEGATIVE (NEGATIVE); Complement C3 173 MG/DL (83-193); Ehrlichia chaff IgG Ab <1:64 (<1:64); Ehrlichia chaff IgM Ab <1:20 (<1:20)
== END 2018-12-07 00:19 | disposition short-term general hospital (02) | DRG 558 ==
LOC: ED 14:03 → SUATTDRO 19:24 → 4W 19:24 → 4E 12-03 15:54